=== PATIENT | male | born 1955 | race Caucasian/White ===

== ENCOUNTER 2020-01-31 04:05 | Emergency (ER) | payer OTHER ==
[~2020-01-31] VITALS: Ht 170.2 cm; Wt 65.8 kg
[2020-01-31 04:18] VITALS: Ht 170.2 cm; Wt 65.8 kg
[2020-01-31 05:20] VITALS: BP 175/97
== END 2020-01-31 05:20 | disposition other institution (70) ==
LOC: ED 04:05
DX: Z02.89 Encounter for other administrative examinations (principal)